=== PATIENT | male | born 1945 | race Caucasian/White ===

== ENCOUNTER 2022-06-25 15:08 | Outpatient (CLI) | payer MEDICARE, BC, SELFPAY ==
--- NOTE | 2022-06-25 15:30 | MR_ITS ---
[address] [address] Phone:?[phone] Fax:?[phone] Referring Physician Information: Mike Wheatley M.D. [address] [place] [address] Phone:?[phone] Fax:?[phone] Patient:?Leonel Kinney D.O.B:?1945 Sex:?Male Phone:?[phone] [facility] MRN:?[id number] Exam Date:?06/25/2022 ? EXAM: MRI EXAMINATION OF THE LEFT SHOULDER CLINICAL INFORMATION: Left shoulder pain. No history of surgery to this area. Evaluate rotator cuff tear. TECHNICAL INFORMATION: Coronal STIR as well as axial, sagittal and coronal PD and T2-weighted images acquired. INTERPRETATION: Bones: There is no Hill-Sachs impaction deformity. Subchondral edema signal involves the superior one third of the glenoid without evidence for a fracture. No evidence for AVN. No other bone marrow edema pattern. Rotator Cuff: There is a complete rupture of the supraspinatus tendon insertion. There is also a broad full-thickness tear involving the infraspinatus tendon. Maximal tendon retraction is midway between the glenohumeral joint and mid humeral head level. Severe infraspinatus and moderate to severe supraspinatus muscle belly atrophy. The teres minor tendon is intact. Broad full-thickness and near full-thickness tear involves the subscapularis tendon. Segmental marked atrophy involves the superior third two thirds of the subscapularis muscle belly. Coracoacromial arch: There is no discrete subacromial osseous spur. The bony acromiohumeral interval is measuring 3 to 4 mm. There is no thickening identified of the coracoacromial ligament. Acromioclavicular joint: Moderate to marked AC joint DJD. Biceps tendon: Disrupted intra-articular portion of the long head biceps tendon appearing likely to be a more chronic finding. Glenohumeral joint and labrum: There is a moderate glenohumeral joint effusion. Changes of synovitis and possibly component of loose body debris within the joint. Glenohumeral joint osteoarthritis with broad full-thickness cartilage loss involving the humeral head. Chondromalacia with areas of associated full- thickness cartilage loss of the mid anterosuperior aspect of the glenoid. There is a blunted appearance of the superior labrum. Shallow tearing involves the superior posterior aspect of the labrum. No discrete paralabral cyst is identified. CONCLUSION: 1. Complete supraspinatus tendon rupture. Broad full-thickness tear of the infraspinatus tendon. Maximal tendon retraction is midway between the glenohumeral joint and mid humeral head level. Severe infraspinatus and moderate to severe supraspinatus muscle belly atrophy. 2. Broad full-thickness and near full-thickness tearing involves the subscapularis tendon. Segmental marked atrophy of the superior two thirds of the muscle belly. 3. Moderate to marked AC joint DJD with moderate to marked narrowing of the acromiohumeral interval. 4. More chronic appearing intra-articular long head biceps tendon disruption. 5. Glenohumeral joint osteoarthritis. Broad full-thickness cartilage loss of the humeral head. Chondromalacia with areas of full-thickness loss of the mid anterosuperior glenoid. 6. There is a moderate glenohumeral joint effusion. Synovitis and possible component of loose body debris within the joint. KES Electronically signed on 06/26/2022 7:26:00 AM by Ulises Quiroga M.D.
== END 2022-06-25 15:09 | disposition home or self-care (01) ==
PROVIDERS: Visit Provider Orthopaedic Surgery
DX: M25.512 Pain in left shoulder (principal); M75.102 Unspecified rotator cuff tear or rupture of left shoulder, not specified as traumatic; M19.012 Primary osteoarthritis, left shoulder; M25.412 Effusion, left shoulder
CPT/HCPCS: 73221

== ENCOUNTER 2022-09-25 10:20 | Inpatient (IN) | payer MEDICARE, BC, SELFPAY ==
--- NOTE | 2022-09-17 15:04 | PC.SOCIAL ---
Received a phone call from Ca in pre-op teaching. Ca informed that pt has a public [facility] nurse through [facility] (Sherry Janet [phone]) and pt is need SNF placement after surgery. Ca stated that pt informed her that the [facility] nurse was locating a SNF placement for pt for after surgery with [facility] in [place]. Surgery is set for September 24. Phone call to Sherry Gonzales with [facility]. Sherry informed that she is not assisting with locating placement and assumed the hospital would be. Informed that it was the information that was relayed to social work and social work will work with the pt to meet the pt's needs. Phone call to pt to discuss SNF placement. Pt stated that he thought he could possibly go to [facility] because he has a granddaughter that works there. Pt has also been in contact with a nurse from [facility] (Georgia Hammonds) and he was hopeful that he could go to [facility]. Informed pt that beds have been limited at SNF's but when he is in the hospital, social work will assist with appropriate discharge planning. Social Work will follow up as necessary.
--- NOTE | 2022-09-18 15:23 | PC.SOCIAL ---
Social work: Received request from [facility] to call pt regarding his request for fdc placement following scheduled left Reverse Shoulder Arthroplasty on 09/24/22. Called pt and spoke with him regarding his plans. PT states his daughter works at [facility] and he wants to go to that facility for rehab following his surgery. Pt states his grand daughter told him the hospital social workers could make a reservation for him before surgery. Explained to pt that it is not possible to make a reservation or to make any progress on placement prior to surgery. Also informed pt that not all surgery meets criteria for insurance coverage of a fdc facility. Pt was pleasant but not interested in discussing any other back up options for arranging for care at home or to stay with family an states he needs to go to a senior living and he has called his insurance and been told it will be covered. Pt is aware social services counselor will meet with him in the hospital to explore options and need for placement at that time.
[2022-09-24] VITALS (25 sets, daily range): BP systolic 97–145; BP diastolic 53–93; PULSE 53–84; RESP 14–20; TEMP 35.2–36.7; O2SAT 93–99; BMI 23.1
[2022-09-24] MEDS: ACETAMINOPHEN 500 MG TABLET 1000 MG PO ×2 (07:20→18:52)
[2022-09-24] MEDS: CELECOXIB 200 MG CAPSULE PO (07:20)
[2022-09-24] MEDS: OXYCODONE (CR) 10 MG TAB.ER.12H PO (07:20)
[2022-09-24] MEDS: SODIUM CHLORIDE 0.9 % (FLUSH) 10 ML SYRINGE IVF (07:25)
[2022-09-24] MEDS: LACTATED RINGERS 1000 ML 1,000 ML 100 ML IV ×2 (07:25→11:18)
[2022-09-24] MEDS: fentaNYL 100 MCG/2 ML inj IVP (08:02)
[2022-09-24] MEDS: MIDAZOLAM HCL 1 MG/ML inj IVP (08:02)
--- NOTE | 2022-09-24 08:14 | SUR.PREOP ---
TIME?OUT:?0800 PT/Dana JASSO RN/Marleny DUVALL MDA?VERIFICATION?OF?SURGICAL?SITE,?PROCEDURE,?AND?CONSENT OBTAINED?PRIOR?TO?INVASIVE?PROCEDURE.
--- NOTE | 2022-09-24 08:15 | W.ANESCHARGE ---
Anesthesia Charges Start Date/Time Anesthesia Start Date: 09/24/22 Anesthesia Start Time: 08:32 Stop Date/Time Anesthesia Stop Date: 09/24/22 Anesthesia Stop Time: 10:57 Summary Emergency: No Extremes of Age: Over 71-CPT [address]4723
--- NOTE | 2022-09-24 08:16 | P.NB_ITS ---
Nerve Block Nerve Block Time Seen by Provider: 08:01 Date Seen: 09/24/22 Type of block requested by surgeon for post-operative analgesia: supraclavicular Side: left Time out performed: Yes Verification of patient name: Yes Verification of date of : Yes Site marking: site marked Name of person performing procedure: Efraín Continuous monitoring Was continuous monitoring of O2 sat, B/P, cardiac nurse specialist, recorded every 15 minutes?: Yes Procedure Checklist: sterile prep, needles and gloves Ultrasound guided. Images saved: Yes Medications given in 5ml increments after negative aspiration: Ropivicaine %: 0.5 mL: 20 Needle gauge: 22 Decadron (mg): 10 Precedex (mcg): 25 Patient tolerated procedure well: Yes Block Charges Block Charge (with Pro Fee): Brachial Plexus Use of Ultrasound Machine for Block: Yes- US Guidance/pain block
--- NOTE | 2022-09-24 10:01 | W.ANESCHARGE ---
Anesthesia Charges Start Date/Time Anesthesia Start Date: 09/24/22 Anesthesia Start Time: 08:32 Stop Date/Time Anesthesia Stop Date: 09/24/22 Summary Emergency: No Extremes of Age: Over 71-CPT [address]78
--- NOTE | 2022-09-24 10:22 | CRLHL7_ITS ---
For Patients: As a result of the Cures Act, medical imaging exams and procedure reports are released immediately into your electronic medical record. You may view this report before your referring provider. If you have questions, please contact your health care provider. Indication: POST OP LEFT REVERSE TOTAL SHOULDER Technique: Two views left shoulder Findings/Impression: Hardware from a left reverse total shoulder arthroplasty is in satisfactory position. Bone alignment is normal. No sign of acute fracture. Postop changes are within normal limits. Dictated by Anjum Corona MD @ 09/24/2022 11:28:17 AM (Electronically Signed)
--- NOTE | 2022-09-24 10:25 | P.ORPRC_ITS ---
Procedure Note Date of procedure: 09/24/22 Procedure: PREOPERATIVE DIAGNOSIS: Left shoulder rotator cuff tear arthropathy POSTOPERATIVE DIAGNOSIS: Left shoulder rotator cuff tear arthropathy NAME OF OPERATION: Left upper extremity reverse shoulder arthroplasty SURGEON: Mike Wheatley MD [employer] MANAGER: Barbara Morales PA-C, ANIKET Ruiz ANESTHESIA: General endotracheal ESTIMATED BLOOD LOSS: 50 mL COMPLICATIONS: None SPECIMENS: None DRAINS: None PREOPERATIVE ANTIBIOTICS: Ancef 1 grams IMPLANTS: 1. Tornier 29 mm x 35 mm baseplate 2. 39 mm standard glenosphere 3. 6B humeral stem 4. High eccentric +0 humeral tray 5. 39 mm +6 polyethylene INDICATIONS: The patient is a 77-year-old with a longstanding history of severe, unrelenting left shoulder pain secondary to rotator cuff tear arthropathy. Despite appropriate nonoperative management, including activity modification, anti-inflammatories, [id number] pain medication, physical therapy, and injections they continue to have pain and disability. Operative intervention was offered. The risks, benefits and expected outcomes were discussed in detail. These included but were not limited to: Infection, bleeding, injury to blood vessel or nerve, venous thromboembolism. All questions were answered to their satisfaction. Use of an property management assistant was necessary throughout the case for patient positioning and safety, soft tissue retraction, and closure. PROCEDURE: General anesthesia was administered. The patient was placed in the lazy beach chair position on the operating room table. The left upper extremity was prepped and draped in the usual sterile fashion. A standard deltopectoral incision was made. Subcutaneous dissection was taken with electrocautery to the deltopectoral interval. The cephalic vein was mobilized, lateral branches were cauterized. The vein was taken medially with the pectoralis. We bluntly entered the deltopectoral interval. We freed up the deltoid. The upper 1/3 of the insertion of the pectoralis was divided with cautery. The static retractor was placed. The clavipectoral fascia and CA ligament were divided. The circumflex vessels were controlled with electrocautery. The biceps was torn and retracted distally. Likewise, the majority of the subscap was torn and retracted medially. The remaining few fibers on the lesser tuberosity were released with electrocautery. The entirety of the rest of the rotator cuff, with the exception of a small portion of teres minor was torn and retracted. The humeral head was delivered into the wound. Marginal osteophytes on the greater and lesser tuberosities were debrided with the Adson rongeur. The intramedullary humeral cutting guide was placed. We made the cut at the anatomic neck, in 30? of retroversion. Humeral sounds were used to assess the diameter of the canal. The broach was placed and had good rotational stability. The calcar reamer was used and the protective base plate cover was placed. Attention was then turned to the glenoid. Hohmann retractors were placed posteriorly. The labrum was sharply debrided. The origin of the inferior glenohumeral ligaments were subperiosteally released off of the glenoid. The drill guide was placed. The guide pin was placed in 0? of cephalic tilt. The reamer was used to bleeding bone. The central drill was used x2. The standard base plate was placed. This had excellent purchase. Locking screws were placed. The peripheral Reamer was used, the glenosphere was impacted. The set screw was tightened. Attention then returned to the humerus. We placed a high eccentric standard base plate and standard poly. We reduced the shoulder and took it through a range of motion. It was found to be stable with appropriate soft tissue tension. Trial humeral components were removed. We placed #2 FiberWire sutures in the lesser tuberosity for subsequent subscap repair. We assembled the humeral component on the back table. We placed it in the center of our subscapularis repair sutures and tapped it down to our humeral cut. This had excellent purchase. The shoulder was reduced and again was found to be stable with appropriate soft tissue tension. We did a 3 min dilute Betadine solution soak. We irrigated the wound with 3 L of normal saline via pulse lavage. We repaired the subscapularis to the lesser tuberosity with our previously placed FiberWire sutures. The deltopectoral interval was loosely reapproximated with an 0 Vicryl in an interrupted [id number] fashion. Subcutaneous tissues were closed with the 2-0 Vicryl and a running 3-0 Monocryl suture. The skin was sealed with glue. A dry dressing and sling were applied. Sponge and needle counts were correct x2. The patient tolerated the procedure well, there were no apparent complications. They were awakened and extubated in the operating room, taken to the postanesthesia care unit in satisfactory condition. PLAN: The patient will be mobilized with physical therapy. The sling will be used for 6 weeks postoperatively. Active range of motion in forward flexion and abduction as tolerates. No external rotation greater than 0? for 6 weeks postoperatively. They will be discharged to home once medically appropriate.
--- NOTE | 2022-09-24 11:00 | W.ANESCHARGE ---
Anesthesia Charges Start Date/Time Anesthesia Start Date: 09/24/22 Anesthesia Start Time: 08:32 Stop Date/Time Anesthesia Stop Date: 09/24/22 Anesthesia Stop Time: 10:57 Summary Emergency: No Extremes of Age: Over 71-CPT 41931
--- NOTE | 2022-09-24 14:52 | PM.IMPN1 ---
Progress Note: A&P Assessment and plan (1) Rotator cuff tear, left: Status: Chronic (2) Multiple sclerosis: Status: Acute Plan Assessment 1. S/p Left upper extremity reverse shoulder arthroplasty 1. Hx of MS 2. Hx of HTn 3. Hx of frequent falls 4. Hx of Essential Tremor 5. Hx of Trigeminal Neuralgia 6. Hx of Alcoholism 7. Hx of Urinary Incontinence 8. Hx of CVA 9. Hx of Ataxia 10. hx of Atrial fibrillation on warfarin Plan -pain control; diet, dvt ppx per surgery -Preop H&P reviewed; will resume warfarin per PCP recs -discussed with Ortho will bridge with lovenox 60 mg subq BID; previously was bridged with lovenox 120 mg subq daily prior to surgery -high risk for DVT (hx of CVA, Afib, clotting d/o etc) -monitor for s/s of bleeding into LUE/shoulder -check INR -home medications reviewed; ordered -BMP and CBC baseline in AM -therapy evaluation and SW Time Spent With Patient Total time spent: 55 Subjective Date Seen: 09/24/22 Interval history: patient complaining of hand tremors after surgery has not had home meds yet has to go to bathroom denies chest pain and sob PREOPERATIVE DIAGNOSIS:? Left shoulder rotator cuff tear arthropathy NAME OF OPERATION:? Left upper extremity reverse shoulder arthroplasty SURGEON:? Mike Wheatley MD ANESTHESIA:? General endotracheal ESTIMATED BLOOD LOSS:? 50 mL Exam Narrative: Exam Narrative: Gen: no acute distress HEENT: NCAT EOMI mmm Neck: Supple CV: bradycardic normal s1 s2 Lungs: CTAB Abd: Soft,nt, nd Neuro: Alert, oriented, bilateral hand tremors Psych: appropriate affect MSK: age appropriate muscle mass Skin; Warm, dry no rash on face Const: Vital Signs, click to edit/add: Vital Signs - 24 hr 09/24/22 07:35 09/24/22 08:00 09/24/22 08:10 Temperature 97.8 F Pulse Rate 57 L 53 L 55 L Pulse Rate [Pulse Oximeter] Respiratory Rate 18 18 16 Blood Pressure 140/78 H 142/76 H 97/56 L Blood Pressure [Ri ght Arm] Pulse Oximetry 96 99 99 Oxygen Delivery Me thod Room Air Nasal Cannula Nasal Cannula Oxygen Flow Rate 2 2 09/24/22 10:55 09/24/22 11:05 09/24/22 11:20 Temperature 97.2 F L Pulse Rate 58 L 61 58 L Pulse Rate [Pulse Oximeter] Respiratory Rate 16 16 20 Blood Pressure 119/71 116/80 100/87 Blood Pressure [Ri ght Arm] Pulse Oximetry 96 96 95 Oxygen Delivery Me thod Room Air Room Air Room Air Oxygen Flow Rate 0 0 0 09/24/22 11:25 09/24/22 11:30 09/24/22 11:00 Temperature 96.7 F L Pulse Rate 62 54 L 59 L Pulse Rate [Pulse Oximeter] Respiratory Rate 20 20 16 Blood Pressure 145/77 H 119/75 102/76 Blood Pressure [Ri ght Arm] Pulse Oximetry 94 95 94 Oxygen Delivery Me thod Room Air Room Air Room Air Oxygen Flow Rate 0 0 0 09/24/22 11:10 09/24/22 11:15 09/24/22 11:40 Temperature 95.4 F L Pulse Rate 65 60 60 Pulse Rate [Pulse Oximeter] Respiratory Rate 20 20 14 Blood Pressure 116/80 114/84 Blood Pressure [Ri ght Arm] 109/65 Pulse Oximetry 95 94 Oxygen Delivery Me thod Room Air Room Air Room Air Oxygen Flow Rate 0 0 09/24/22 11:55 09/24/22 12:00 09/24/22 13:38 Temperature 96.7 F L Pulse Rate Pulse Rate [Pulse Oximeter] 58 L 60 62 Respiratory Rate 14 14 Blood Pressure Blood Pressure [Ri ght Arm] 106/75 116/72 116/73 Pulse Oximetry 95 96 Oxygen Delivery Me thod Room Air Room Air Room Air Oxygen Flow Rate 0 09/24/22 12:30 09/24/22 13:00 09/24/22 13:30 Temperature 97.1 F L 97.2 F L Pulse Rate Pulse Rate [Pulse Oximeter] 61 74 74 Respiratory Rate 16 16 Blood Pressure Blood Pressure [Ri ght Arm] 119/71 112/86 144/72 H Pulse Oximetry 97 94 Oxygen Delivery Me thod Room Air Room Air Room Air Oxygen Flow Rate 0 0 0 09/24/22 14:30 Temperature 97.4 F L Pulse Rate Pulse Rate [Pulse Oximeter] 82 Respiratory Rate 16 Blood Pressure Blood Pressure [Ri ght Arm] 129/53 L Pulse Oximetry 96 Oxygen Delivery Me thod Room Air Oxygen Flow Rate 0
--- NOTE | 2022-09-24 15:18 | PC.SOCIAL ---
Pt. lives alone with MS and wants a prison for rehab following his shoulder surgery. Pt.'s granddaughter works at [facility] and he called ahead. [facility] has bed and is assessing.
[2022-09-24] MEDS: BACLOFEN 10 MG TABLET 20 MG PO ×2 (16:10→21:17)
[2022-09-24] MEDS: GABAPENTIN 100 MG CAPSULE 300 MG PO (17:08)
[2022-09-24 17:35] LABS: INR 0.99 (0.91-1.10); Prothrombin Time 13.7 Seconds
[2022-09-24] MEDS: ENOXAPARIN 60 MG/0.6 ML INJ SUBCUT (18:09)
[2022-09-24] MEDS: WARFARIN 5 MG TABLET PO (18:09)
[2022-09-24] MEDS: LACTATED RINGERS 1000 ML 1,000 ML 75 ML IV (21:09)
[2022-09-24] MEDS: GABAPENTIN 100 MG CAPSULE 400 MG PO (21:16)
[2022-09-24] MEDS: TAMSULOSIN HCL 0.4 MG CAPSULE 0.8 MG PO (21:17)
--- NOTE | 2022-09-24 23:38 | PC.NURSE ---
End of Shift: Patient pleasant and cooperative. Afebrile. Denies pain. Dressing to left shoulder C/D/I. CMS intact and able to move fingers slightly by the end of the shift. Up to the bathroom and chair with 2 assist and gait belt. Tolerating regular diet with no nausea. Needing total assistance with feeding. Scab to right aguilar that patient reported he noticed last night.
[2022-09-25] VITALS (7 sets, daily range): BP systolic 110–148; BP diastolic 59–87; PULSE 66–96; RESP 16–20; TEMP 36.5–36.7; O2SAT 94–96
[2022-09-25] MEDS: ACETAMINOPHEN 500 MG TABLET 1000 MG PO ×4 (03:12→19:35)
[2022-09-25] MEDS: GABAPENTIN 100 MG CAPSULE PO (03:18)
[2022-09-25] MEDS: ENOXAPARIN 60 MG/0.6 ML INJ SUBCUT ×2 (05:43→17:01)
--- NOTE | 2022-09-25 06:14 | PC.NURSE ---
Pt is alert and oriented x3, pleasant and cooperative. Afebrile. Pt denies pain, chest pain, SOB, and N/V. Left shoulder dressing is CDI. CMS intact and able to move fingers and shoulder. Pt is up with A1 with gait belt to bathroom. Gait is unstable and pt requires direction. Tolerates regular diet, requires assistance with medication administration and food due to hand tremors in non-surgical arm.?
[2022-09-25 07:27] LABS: Hematocrit 31.7 % (37.0-53.0); Hemoglobin* 10.6 gm/dL (13.5-17.5); Mean Corpuscular HGB Conc 33 gm/dL (32-36); Mean Corpuscular Hemoglobin 31 pg (26-34); Mean Corpuscular Volume 93 fL (80-100); Platelet Count* 158 K/uL (140-440); Red Blood Count 3.41 m/uL (4.30-5.90); White Blood Count* 8.19 K/uL (4.50-11.00)
[2022-09-25 07:35] LABS: Slide Review Reflex No
[2022-09-25 07:43] LABS: INR 1.17 (0.91-1.10); Prothrombin Time 15.6 Seconds
[2022-09-25 07:46] LABS: Chloride* 110 mmol/L (96-114); Potassium* 4.7 mmol/L (3.6-5.1); Sodium* 139 mmol/L (135-149)
[2022-09-25 07:48] LABS: Creatinine* 0.9 mg/dL (0.5-1.5); Est. Creatinine Clearance* 64.89; Estimated Glomerular Filt Rate 89 ml/min
[2022-09-25 07:49] LABS: Blood Urea Nitrogen* 30 mg/dL (7-30); Calcium* 8.4 mg/dL (8.4-10.6); Carbon Dioxide* 25 mmol/L (20-32); Glucose* 125 mg/dL (60-115)
--- NOTE | 2022-09-25 07:52 | PM.ORPN ---
Subjective Subjective Time Seen by Provider: 07:52 Date Seen: 09/25/22 Principal diagnosis: Status post left reverse shoulder replacement. Date of surgery 09/24/2022 Interval history: Leonel states that he has gotten movement in his left hand and wrist. He states going to the bathroom this morning went well. His nurse Abelardo states it did not go well. Ortho Exam Narrative Exam Narrative: Alert and oriented x3. Patient is in no acute distress. Converses without labored breathing. Hearing is grossly intact. Ambulates with assist and a walker. Left arm is in a sling. Left wrist flexion and extension is present. He is able to flex and extend his fingers. Radial and ulnar pulses are 2+. Sensation is slightly returning. Ecchymosis present about the shoulder. Soft tissue edema about the shoulder. The sling is adjusted. Const Vital Signs, click to edit/add: Vital Signs - 24 hr 09/24/22 08:00 09/24/22 08:10 09/24/22 10:55 Temperature 97.2 F L Pulse Rate 53 L 55 L 58 L Pulse Rate [Left Radial] Pulse Rate [Pulse Oximeter] Respiratory Rate 18 16 16 Blood Pressure 142/76 H 97/56 L 119/71 Blood Pressure [Right Arm] Pulse Oximetry 99 99 96 Oxygen Delivery Method Nasal Cannula Nasal Cannula Room Air Oxygen Flow Rate 2 2 0 09/24/22 11:05 09/24/22 11:20 09/24/22 11:25 Temperature 96.7 F L Pulse Rate 61 58 L 62 Pulse Rate [Left Radial] Pulse Rate [Pulse Oximeter] Respiratory Rate 16 20 20 Blood Pressure 116/80 100/87 145/77 H Blood Pressure [Right Arm] Pulse Oximetry 96 95 94 Oxygen Delivery Method Room Air Room Air Room Air Oxygen Flow Rate 0 0 0 09/24/22 11:30 09/24/22 11:00 09/24/22 11:10 Temperature Pulse Rate 54 L 59 L 65 Pulse Rate [Left Radial] Pulse Rate [Pulse Oximeter] Respiratory Rate 20 16 20 Blood Pressure 119/75 102/76 116/80 Blood Pressure [Right Arm] Pulse Oximetry 95 94 95 Oxygen Delivery Method Room Air Room Air Room Air Oxygen Flow Rate 0 0 0 09/24/22 11:15 09/24/22 11:40 09/24/22 11:55 Temperature 95.4 F L Pulse Rate 60 60 Pulse Rate [Left Radial] Pulse Rate [Pulse Oximeter] 58 L Respiratory Rate 20 14 14 Blood Pressure 114/84 Blood Pressure [Right Arm] 109/65 106/75 Pulse Oximetry 94 95 Oxygen Delivery Method Room Air Room Air Room Air Oxygen Flow Rate 0 09/24/22 12:00 09/24/22 13:38 09/24/22 12:30 Temperature 96.7 F L Pulse Rate Pulse Rate [Left Radial] Pulse Rate [Pulse Oximeter] 60 62 61 Respiratory Rate 14 Blood Pressure Blood Pressure [Right Arm] 116/72 116/73 119/71 Pulse Oximetry 96 Oxygen Delivery Method Room Air Room Air Room Air Oxygen Flow Rate 0 0 09/24/22 13:00 09/24/22 13:30 09/24/22 14:30 Temperature 97.1 F L 97.2 F L 97.4 F L Pulse Rate Pulse Rate [Left Radial] Pulse Rate [Pulse Oximeter] 74 74 82 Respiratory Rate 16 16 16 Blood Pressure Blood Pressure [Right Arm] 112/86 144/72 H 129/53 L Pulse Oximetry 97 94 96 Oxygen Delivery Method Room Air Room Air Room Air Oxygen Flow Rate 0 0 0 09/24/22 15:00 09/24/22 19:00 09/24/22 15:30 Temperature 97.6 F 97.4 F L Pulse Rate Pulse Rate [Left Radial] 82 76 Pulse Rate [Pulse Oximeter] 76 Respiratory Rate 18 18 Blood Pressure Blood Pressure [Right Arm] 136/90 H 135/71 Pulse Oximetry 93 94 Oxygen Delivery Method Room Air Room Air Oxygen Flow Rate 0 09/24/22 16:30 09/24/22 17:30 09/24/22 23:00 Temperature 97.6 F Pulse Rate Pulse Rate [Left Radial] Pulse Rate [Pulse Oximeter] 78 84 83 Respiratory Rate 18 18 Blood Pressure Blood Pressure [Right Arm] 134/81 140/93 H Pulse Oximetry 95 94 Oxygen Delivery Method Room Air Room Air Oxygen Flow Rate 0 0 09/24/22 23:00 09/25/22 03:00 Temperature 98.0 F 97.9 F Pulse Rate Pulse Rate [Left Radial] 83 Pulse Rate [Pulse Oximeter] 83 80 Respiratory Rate 16 16 Blood Pressure Blood Pressure [Right Arm] 138/78 148/87 H Pulse Oximetry 95 95 Oxygen Delivery Method Room Air Room Air Oxygen Flow Rate 0 0 Assessment and Plan Assessment and plan (1) Multiple sclerosis: Status: Acute (2) Status post reverse arthroplasty of left shoulder: Problem details: 09/24/2022 Status: Acute Assessment and Plan: Events [employer] Prom[employer] Assistant is assessing placement at [facility]. His granddaughter works at [facility] and he would like to go there. He would benefit from prison facility since he lives alone. According to staff, Leonel is not moving well. He has MS. He is on long-term warfarin for anticoagulation. Lovenox 60 mg subQ b.i.d. has been added as well for he is at high risk of DVT. The block will wear off in the next 24 hours. I would expect he will have excessive bruising. Forward flexion and abduction of the operative shoulder as tolerates, no external rotation > 0?. Come out of the sling multiple times a day to fully range the elbow, wrist and fingers. Wear sling for 6 weeks. May shower. Dressing is waterproof. Notify Orthopedics with any questions or concerns. . Return to clinic in 1 week for wound check, JACKI. Return to clinic in [address] Wheatley. OT and PT at prison facility daily
[2022-09-25] MEDS: SENNOSIDES 1 TAB TABLET 2 TAB PO ×2 (09:31→20:52)
[2022-09-25] MEDS: TAMSULOSIN HCL 0.4 MG CAPSULE 0.8 MG PO ×2 (09:31→20:53)
[2022-09-25] MEDS: BACLOFEN 10 MG TABLET 20 MG PO ×3 (09:31→20:55)
[2022-09-25] MEDS: GABAPENTIN 100 MG CAPSULE 400 MG PO ×2 (09:33→20:54)
[2022-09-25] MEDS: SERTRALINE 50 MG TABLET PO (09:35)
[2022-09-25] MEDS: GABAPENTIN 100 MG CAPSULE 300 MG PO (14:02)
--- NOTE | 2022-09-25 15:09 | PC.SOCIAL ---
Pt. has been accepted to [address] [place] [address] for short-term rehab for tomorrow. Pt. wants a medical transport. A non-emergency medical transport will be arranged. Pt. is in agreement to pay for the transport.
[2022-09-25] MEDS: DALFAMPRIDINE 10 MG PO ×2 (15:46→20:55)
[2022-09-25] MEDS: WARFARIN 5 MG TABLET PO (17:01)
--- NOTE | 2022-09-25 17:10 | P.IMPN_ITS ---
Progress Note: A&P Assessment and plan (1) Multiple sclerosis: Problem details: Continue with weekly injections of interferon Status: Acute (2) Status post reverse arthroplasty of left shoulder: Problem details: 09/24/2022, Dr. Wheatley Status: Acute Assessment and Plan: With patient's limited baseline physical functioning and now status post this left shoulder surgery he warrants senior living placement for period of time. Plan Continue work with social contact worker to establish safe discharge disposition. Patient and daughter and son-in-law are agreeable. Time Spent With Patient Total time spent: 15 minutes Subjective Time Seen by Provider: 16:00 Date Seen: 09/25/22 Interval history: Hospital day 2, postoperative day 1 status post elective left shoulder arthroplasty. Patient lives alone and is not able to safely care for himself in his home. Has disability in association with underlying multiple sclerosis. Awaiting senior living bed availability for transitional care services. Patient pleased with outcome of surgery thus far. Working with physical occupational therapy. Would be very appropriate for senior living services at this time. Exam Narrative: Exam Narrative: No acute distress, appears comfortable. Oriented to self, place, time, situation. Friendly, cooperative. Articulate. Mood and affect are congruent. Lungs clear to auscultation. Heart tones with regular rhythm. Baseline tremor of right side of the body. Const: Vital Signs, click to edit/add: Vital Signs - 24 hr 09/24/22 19:00 09/24/22 17:30 09/24/22 23:00 Temperature 97.6 F 97.6 F Pulse Rate [Left R adial] 76 Pulse Rate [Pulse Oximeter] 84 83 Respiratory Rate 18 18 Blood Pressure [Ri ght Arm] 136/90 H 140/93 H Pulse Oximetry 93 94 Oxygen Delivery Me thod Room Air Room Air Oxygen Flow Rate 0 09/24/22 23:00 09/25/22 03:00 09/25/22 07:45 Temperature 98.0 F 97.9 F 97.7 F Pulse Rate [Left R adial] 83 66 Pulse Rate [Pulse Oximeter] 83 80 66 Respiratory Rate 16 16 18 Blood Pressure [Ri ght Arm] 138/78 148/87 H 129/77 Pulse Oximetry 95 95 95 Oxygen Delivery Me thod Room Air Room Air Room Air Oxygen Flow Rate 0 0 0 09/25/22 07:45 09/25/22 11:00 09/25/22 16:30 Temperature 98.0 F Pulse Rate [Left R adial] 66 79 96 Pulse Rate [Pulse Oximeter] 66 79 96 Respiratory Rate 18 20 18 Blood Pressure [Ri ght Arm] 110/59 L Pulse Oximetry 94 Oxygen Delivery Me thod Room Air Oxygen Flow Rate 0 09/25/22 15:15 Temperature 98.1 F Pulse Rate [Left R adial] 96 Pulse Rate [Pulse Oximeter] 96 Respiratory Rate 18 Blood Pressure [Ri ght Arm] 110/84 Pulse Oximetry 96 Oxygen Delivery Me thod Room Air Oxygen Flow Rate 0 Documenting provider has reviewed patient's vital signs: yes Labs Labs: Laboratory Results - last 24 hr 09/24/22 09/25/22 09/25/22 17:13 06:55 06:55 WBC 8.19 RBC 3.41 L Hgb 10.6 L Hct 31.7 L MCV 93 MCH 31 MCHC 33 Plt Count 158 INR 0.99 Sodium 139 Potassium 4.7 Chloride 110 Carbon Dioxide 25 BUN 30 Creatinine 0.9 Estimated Creat Clear 64.89 Estimated GFR 89 Glucose 125 H Calcium 8.4 09/25/22 06:55 WBC RBC Hgb Hct MCV MCH MCHC Plt Count INR 1.17 H Sodium Potassium Chloride Carbon Dioxide BUN Creatinine Estimated Creat Clear Estimated GFR Glucose Calcium
--- NOTE | 2022-09-25 18:12 | PC.NURSE ---
End of Shift: Pt pleasant and cooperative. Afebrile. Denies pain. Dressing to left shoulder C/D/I. CMS intact and able to move fingers /arms.. Up to the bathroom and chair with 2 assist and gait belt. he is very unsteady and a huge fall risk Tolerating regular diet with no nausea. he is a feeder. Scab to right aguilar that patient dressing is on./ teds are on and off. Cryo cuff to the shoulder/ requires assistance with medication administration and food due to hand tremors in non-surgical arm
[2022-09-25] MEDS: LORazepam 0.5 MG TABLET PO (20:52)
[2022-09-25] MEDS: SODIUM CHLORIDE 0.9 % (FLUSH) 10 ML SYRINGE IVF (20:55)
[2022-09-25] MEDS: OXYCODONE 5 MG TABLET PO (22:20)
--- NOTE | 2022-09-25 22:38 | PC.NURSE ---
19-23: Pt's gait steady with his legs, but still flailing arms while walking, thus able to use gait belt and Ax1 to BR, as walker posed increased fall risk. Main concern is patient anxious about his gabapentin that he apparently forgot at home in a small luggage, anyways pt was highly anxious/restless setting bed alarm frequently, helped patient look through his belongings three times without success, informed him the belonging list and med room didn't contain his gabapentin, he refused need to call his daughter's about it as they wouldn't be able to get it and he probably wouldn't have it until Friday, after a few times questioning him he stated he would call his daughter in the morning and hopefully get it taken care of, as pt is fearful/anxious if he doesn't have gabapentin on hand he experiences extreme pain he was comparing to being hit with a 14 ice pick, educated him we can't have meds sitting at pt's bedside, but I will be working as charge and another nurse will take care of him tonight, and as he described if he needs it around 0000,03 we would be able to administer it in a few minutes, adjusted scheduled gabapentin to home times and md mclean was updated and prn gabapentin tid was ordered. Pt hesitatant at first to take narcotics and preffered gabapenting, but recently was willing to take 10mg oxycodone as he noted his shoulder becoming painful after surgery. Bed alarms on and after pt swallowed oxycodone he seems restful and took his glasses of in bed, pt also recieved ativan around 2100.
[2022-09-26] VITALS (8 sets, daily range): BP systolic 90–122; BP diastolic 53–81; PULSE 60–98; RESP 18; TEMP 36.1–37.3; O2SAT 91–98
[2022-09-26] MEDS: ACETAMINOPHEN 500 MG TABLET 1000 MG PO ×3 (03:30→19:04)
[2022-09-26] MEDS: OXYCODONE 5 MG TABLET PO ×3 (05:15→15:20)
[2022-09-26] MEDS: GABAPENTIN 100 MG CAPSULE 400 MG PO ×2 (05:15→19:42)
[2022-09-26] MEDS: ENOXAPARIN 60 MG/0.6 ML INJ SUBCUT ×2 (05:16→17:23)
--- NOTE | 2022-09-26 06:44 | PC.NURSE ---
: Ax1 with gb, unsteady gait. Bed alarm on, pt asks to have the alarm turned off, pt reminded that it is for safety. Upper extremities tremulous. Pt c/o shoulder pain 5/10, 5mg oxy given. Cryo cuff on.
[2022-09-26 07:42] LABS: Hematocrit 29.3 % (37.0-53.0); Hemoglobin* 9.7 gm/dL (13.5-17.5); Mean Corpuscular HGB Conc 33 gm/dL (32-36); Mean Corpuscular Hemoglobin 31 pg (26-34); Mean Corpuscular Volume 94 fL (80-100); Platelet Count* 137 K/uL (140-440); Red Blood Count 3.13 m/uL (4.30-5.90); White Blood Count* 6.02 K/uL (4.50-11.00)
[2022-09-26 07:48] LABS: Slide Review Reflex No
[2022-09-26 08:05] LABS: Potassium* 4.1 mmol/L (3.6-5.1); Sodium* 140 mmol/L (135-149)
[2022-09-26 08:08] LABS: Blood Urea Nitrogen* 35 mg/dL (7-30); Creatinine* 0.9 mg/dL (0.5-1.5); Est. Creatinine Clearance* 64.89; Estimated Glomerular Filt Rate 89 ml/min
--- NOTE | 2022-09-26 08:55 | PM.ORPN ---
Subjective Subjective Time Seen by Provider: 08:00 Date Seen: 09/26/22 Principal diagnosis: Status post left reverse shoulder replacement. Date of surgery 09/24/2022 Interval history: Gucci is comfortable this morning. He has an a sling and 2 six-inch Micheal bandages wrapped around his torso. Ice pack is in place. He is going to [facility] today. Ortho Exam Narrative Exam Narrative: Alert and oriented x3. Patient is in no acute distress. Converses without labored breathing. Hearing is grossly intact. Ambulates with assistance. Examination of the left shoulder shows extensive edema. Extensive ecchymosis. Range of motion of the elbow, wrist, fingers is normal. CMS intact left upper extremity. Const Vital Signs, click to edit/add: Vital Signs - 24 hr 09/25/22 11:00 09/25/22 16:30 09/25/22 15:15 Temperature 98.0 F 98.1 F Pulse Rate [Left Radial] 79 96 96 Pulse Rate [Pulse Oximeter] 79 96 96 Respiratory Rate 20 18 18 Blood Pressure [Right Arm] 110/59 L 110/84 Pulse Oximetry 94 96 Oxygen Delivery Method Room Air Room Air Oxygen Flow Rate 0 0 09/25/22 19:39 09/25/22 23:00 09/25/22 23:00 Temperature 97.9 F 97.9 F Pulse Rate [Left Radial] 96 Pulse Rate [Pulse Oximeter] 75 75 Respiratory Rate 18 18 18 Blood Pressure [Right Arm] 127/66 133/76 Pulse Oximetry 96 96 Oxygen Delivery Method Room Air Room Air Oxygen Flow Rate 09/26/22 03:00 Temperature 96.9 F L Pulse Rate [Left Radial] Pulse Rate [Pulse Oximeter] 88 Respiratory Rate 18 Blood Pressure [Right Arm] 102/74 Pulse Oximetry 97 Oxygen Delivery Method Room Air Oxygen Flow Rate Documenting provider has reviewed patient's vital signs: yes Assessment and Plan Assessment and plan (1) Multiple sclerosis: Problem details: Continue with weekly injections of interferon Status: Acute (2) Status post reverse arthroplasty of left shoulder: Problem details: 09/24/2022, Dr. Wheatley Status: Acute Assessment and Plan: Plan for discharge is to [facility] today. Patient will wear the sling for 6 weeks post surgery. They can take it off for comfort and for exercises. Activity: no external rotation of the operative shoulder past 0? x 6 weeks. Forward flexion and abduction of the shoulder is allowed as tolerated. They will work on range of motion of the elbow, wrist, fingers once the block has wore off on the operative extremity. Physical therapy and occupational therapy at [facility] daily. For discharge, oxycodone and Tylenol for pain. Do not drive while on narcotic pain medication. Drive only when safe to do so, when they have normal use/function of the upper extremity, this will likely take 6 weeks. Patient will minimize and discontinue the narcotic as soon as possible. Remove dressing in 1 week. Dressing is waterproof. May shower. Surgical glue covers the wound. Do not scrub the wound. Expect swelling and bruising about the shoulder and upper extremity. Use of ice/active ice without restriction. Notify Orthopedics his swelling is excessive. notify Orthopedics with any questions or concerns. [phone] Return to Orthopedic clinic next week for a wound check Return to clinic in [address] Wheatley.
[2022-09-26] MEDS: BACLOFEN 10 MG TABLET 20 MG PO ×3 (09:23→19:42)
[2022-09-26] MEDS: DALFAMPRIDINE 10 MG PO ×2 (09:23→19:45)
[2022-09-26] MEDS: TAMSULOSIN HCL 0.4 MG CAPSULE 0.8 MG PO ×2 (09:24→19:42)
[2022-09-26] MEDS: SERTRALINE 50 MG TABLET PO (09:24)
[2022-09-26] MEDS: SENNOSIDES 1 TAB TABLET 2 TAB PO ×2 (09:24→19:43)
[2022-09-26] MEDS: GABAPENTIN 100 MG CAPSULE 300 MG PO (11:51)
--- NOTE | 2022-09-26 14:28 | PC.SOCIAL ---
Updated pt.'s daughter Rossy that pt. will not be discharged until tomorrow morning now due to the weather and EMS being booked. [facility] said they could take pt. as early as 8:15am tomorrow.
--- NOTE | 2022-09-26 15:34 | PM.DS1 ---
DS: Providers Provider Time Seen by Provider: 08:30 Date Seen: 09/26/22 Date of admission: 09/25/22 10:20 Primary care physician: Not a Local Provider Admitting Clinician: Lorena Whitlock MD Consults: 09/24/22 11:38 Consult to Occupational Therapy [CONS] Routine Comment: Reason(s) for OT Consult:: Evaluate and Treat Any Restrictions?:: See Comment Consult to Physical Therapy [CONS] Routine Comment: Reason(s) for PT Consult:: Evaluate and Treat Any Restrictions?:: See Comment Comment: Active forward flexion and abduction as tolerates, no external rotation greater than 0? x 6 weeks. DC sling 3-4 times per day and p.r.n. for for active range of motion of the elbow, wrist and fingers. Consult to Physician [CONS] Routine Comment: Consulting Provider: Hospitalists Has provider been notified: No Consult to Rotary Derrick Operator [CONS] Routine Comment: Reason for Consult:: Discharge Planning Needs Attending Physician on discharge: Mike Wheatley MD Date of Discharge: 09/26/22 DS: Diagnosis Discharge Diagnosis (1) Rotator cuff tear arthropathy of left shoulder: Status: Acute (2) Status post reverse arthroplasty of left shoulder: Status: Acute Problem details: 09/24/2022, Dr. 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 He undergoes elective left shoulder arthroplasty and is not able to return home independently and thus he is admitted to the hospital such time as we can find a place for him. We were able to find him a place in a relatively short period of time at [address] [place] [address]. Status at Discharge Functional status at discharge: uses cane/walker Overall status at discharge: patient is progressing back to baseline Time Spent with Patient Time attestation: Total time spent providing and/or coordinating discharge services: 30 minutes Time spent: Less than 30 minutes Exam Narrative: Exam Narrative: No acute distress, appears comfortable.? Oriented to self, place, time, situation.? Friendly, cooperative.? Articulate.? Mood and affect are congruent.? Lungs clear to auscultation.? Heart tones with regular rhythm.? Baseline tremor of right side of the body. Const: Vital Signs, click to edit/add: Vital Signs - 24 hr 09/25/22 16:30 09/25/22 19:39 09/25/22 23:00 Temperature 97.9 F Pulse Rate Pulse Rate [Left R adial] 96 96 Pulse Rate [Pulse Oximeter] 96 75 Respiratory Rate 18 18 18 Blood Pressure Blood Pressure [Ri ght Arm] 127/66 Pulse Oximetry 96 Oxygen Delivery Me thod Room Air Oxygen Flow Rate 09/25/22 23:00 09/26/22 03:00 09/26/22 07:00 Temperature 97.9 F 96.9 F L Pulse Rate Pulse Rate [Left R adial] Pulse Rate [Pulse Oximeter] 75 88 87 Respiratory Rate 18 18 Blood Pressure Blood Pressure [Ri ght Arm] 133/76 102/74 Pulse Oximetry 96 97 Oxygen Delivery Me thod Room Air Room Air Oxygen Flow Rate 09/26/22 07:00 09/26/22 11:30 09/26/22 11:00 Temperature 97.6 F 97.6 F 97.6 F Pulse Rate 60 Pulse Rate [Left R adial] Pulse Rate [Pulse Oximeter] 87 98 Respiratory Rate 18 18 18 Blood Pressure 119/75 Blood Pressure [Ri ght Arm] 122/81 90/60 Pulse Oximetry 98 91 Oxygen Delivery Me thod Room Air Room Air Oxygen Flow Rate 0 0 Documenting provider has reviewed patient's vital signs: yes DS: Data Data Completed and Pending Labs on day of discharge: Labs from last 24 hours 09/26/22 09/26/22 07:10 07:10 WBC 6.02 RBC 3.13 L Hgb 9.7 L Hct 29.3 L MCV 94 MCH 31 MCHC 33 Plt Count 137 L Sodium 140 Potassium 4.1 BUN 35 H Creatinine 0.9 Estimated Creat Clear 64.89 Estimated GFR 89 Discharge Plan Discharge Disposition: [facility] Discharge Location: [facility] Date of Admission: 09/25/22 10:20 Attending Provider on Discharge: Mike Wheatley Consulting Providers: Ezra Hoffman ; Rosio Greene ; Kedar Hameed ; Physician,[place] ; Miles Morgan ; Gianni Swift ; Lauren Weston ; Reynaldo Smalls ; Moses Olvera ; Lorena Whitlock ; Rashmi Alford ; Davon Ruiz ; Lg Benedict ; Zuly Collins ; Hunter Carter ; Dominik Way ; Caleb Phillips ; Kevin Yoder ; Dennis Saravia ; Ines Carbajal ; Rosemary Contreras ; Sherita Steward ; Viviana Greco ; Abdoul Mendoza ; Rubén Christopher ; Michael Norman ; Robyn Castrejon ; Martina Palma ; Audi Triplett Primary Care Provider: Provider,Not a Local Condition: Stable Anticipated Discharge Date/Time: 09/26/22 10:00 Discharge Medications: New sennosides [Senna Lax] 8.6 mg Tablet 17.2 mg PO BID PRN (Reason: constipation) Qty: 100 0RF oxycodone 5 mg Tablet 2.5 - 5 mg PO Q4-6H MDD 6 tabs per day PRN (Reason: Pain) Qty: 42 0RF Rx Instructions: Minimize. Discontinue as soon as possible Continued baclofen 20 mg tablet 20 mg PO TID acetaminophen [Tylenol Extra Strength] 500 mg tablet 1,000 mg PO BID dalfampridine 10 mg tablet extended release 12 hr 10 mg PO Q12H Fish Oil 100-160-1,000 mg capsule 1 cap PO DAILY fluticasone propionate 50 mcg/actuation spray,suspension 2 spray intranasal QPM Avonex 30 mcg/0.5 mL pen injector 0.5 ml IM QWEEK Label Comments: PATIENT TAKES ON FRIDAY multivitamin Tablet 1 tab PO QDAY propranolol 60 mg tablet 60 mg PO BID sertraline 50 mg tablet 50 mg PO QDAY tamsulosin 0.4 mg capsule 0.8 mg PO BID warfarin 2.5 mg tablet 2.5 mg PO DAILY Rx Instructions: TAKING 5 MG ON MONDAYS AND THURSDAYS, 2.5 MG ALL OTHER DAYS OF WEEK INR GOAL OF 2.5 gabapentin 100 mg capsule 400 mg PO BID gabapentin 100 mg capsule 300 mg PO DAILY@12 Held aspirin 81 mg tablet,delayed release (DR/EC) 81 mg PO DAILY Hold Instructions: Resume on 10/02/22. Discharge Orders: Discharge Order (Routine); Ordered 09/26/22 Ordered By: Davon Ruiz Consulting provider completed their portion of the discharge: Yes Additional Instructions: PT an OT daily at [facility] Activity Detail: Wear the sling for 6 weeks post-surgery. Take it off for comfort and for exercises. Activity: no external rotation of the operative shoulder past 0? x 6 weeks. Forward flexion and abduction of the shoulder is allowed as tolerated. Range of motion of the elbow, wrist, fingers once the block has worn off on the operative extremity 3 or more times per day. Physical therapy and occupational therapy at [facility] daily. If you Drive, Do not drive while on narcotic pain medication. Drive only when safe to do so, when you have normal use/function of the upper extremity, this will likely take 6 weeks due to wearing a sling. Minimize and discontinue the narcotic as soon as possible. Remove dressing in 1 week. Dressing is waterproof. May shower. Surgical glue covers the wound. Do not scrub the wound. Expect swelling and bruising about the shoulder and upper extremity. Use of ice/active ice without restriction. notify Orthopedics with any questions or concerns [phone]. Return to Orthopedic clinic next week for a wound check as scheduled Return to clinic in [address] Wheatley. Discharge Diet: Regular Follow Up Appointments: [facility] [Outside] Forms: Work/School Release Admit to: SNF Discharge Potential: Fair Length of Stay: <30 days Can use facility standing orders?: Yes Code Status: Full Code TEDs: Bilateral Knee Therapy: Physical Therapy and Occupational Therapy Therapy Orders: Evaluate and Treat Therapy Orders Additional Information: OT and PT at [facility] daily Oxygen: No Next INR: 09/27/2022 INR Goal: 2-3 Orders are good >30 days: Yes Signature: Davon Ruiz
[2022-09-26] MEDS: WARFARIN 5 MG TABLET PO (17:24)
--- NOTE | 2022-09-26 17:58 | PC.NURSE ---
PATIENT PLEASANT AND COOPERATIVE, ALERT AND ORIENTED, UP WITH A1 WALKER AND BELT TOLERATING FAIRLY, PATIENT HAS ESSENTIAL TREMORS IN UPPER ARMS AND IT OFTEN MAKES IT HARD TO HOLD THE WALKER STEADY, NEED ASSISTANCE WITH EATING ALTHOUGH HAS BEEN ABLE INTERMITTENTLY TO FEED SELF, TOLERATING REGULAR DIET, RATING PAIN IN LEFT SHOULDER 5-10 BEING MANAGED WITH PRN OXYCODONE AND SCHEDULED TYLENOL, SLING TO LEFT SHOULDER, DRESSING CDI, PATIENT PREFERS ACTIVE ICE TO SHOULDER OVER CYRO CUFF.
[2022-09-27] MEDS: ACETAMINOPHEN 500 MG TABLET 1000 MG PO ×2 (00:31→06:39)
[2022-09-27 00:34] VITALS: BP 131/92; PULSE 76; RESP 20; TEMP 36.6; O2SAT 97
[2022-09-27 03:43] VITALS: BP 135/79; PULSE 66; RESP 20; TEMP 36.9; O2SAT 97
[2022-09-27] MEDS: ENOXAPARIN 60 MG/0.6 ML INJ SUBCUT (05:03)
[2022-09-27] MEDS: GABAPENTIN 100 MG CAPSULE 400 MG PO (05:03)
--- NOTE | 2022-09-27 06:47 | PC.NURSE ---
Status [id number] Alert and oriented. Pleasant and cooperative. Receiving scheduled Tylenol for left shoulder pain. Utilizing active ice to left shoulder as well. PRN oxy offered but patient hesitant and refused d/t how it made him feel. Left arm remains in sling overnight. Dressing CDI. VSS on room air. Up with assist of 1 with walker/belt to bathroom. Using call light appropriately. Pt observed resting between cares. Plan to d/c to [facility] today at 0900 via EMS. ???
[2022-09-27 06:51] LABS: Hemoglobin* 9.3 gm/dL (13.5-17.5); Mean Corpuscular HGB Conc 33 gm/dL (32-36); Mean Corpuscular Hemoglobin 31 pg (26-34); Mean Corpuscular Volume 94 fL (80-100); Platelet Count* 154 K/uL (140-440); Potassium* 4.1 mmol/L (3.6-5.1); Red Blood Count 2.99 m/uL (4.30-5.90); Sodium* 139 mmol/L (135-149); White Blood Count* 5.12 K/uL (4.50-11.00)
[2022-09-27 06:54] LABS: Blood Urea Nitrogen* 30 mg/dL (7-30); Creatinine* 0.9 mg/dL (0.5-1.5); Est. Creatinine Clearance* 64.89; Estimated Glomerular Filt Rate 89 ml/min
[2022-09-27 06:56] LABS: Slide Review Reflex No
[2022-09-27 07:00] VITALS: BP 98/65; PULSE 89; RESP 16; TEMP 36.7; O2SAT 97
[2022-09-27] MEDS: SENNOSIDES 1 TAB TABLET 2 TAB PO (09:10)
[2022-09-27] MEDS: TAMSULOSIN HCL 0.4 MG CAPSULE 0.8 MG PO (09:10)
[2022-09-27] MEDS: OXYCODONE 5 MG TABLET PO (09:11)
[2022-09-27] MEDS: BACLOFEN 10 MG TABLET 20 MG PO (09:11)
[2022-09-27] MEDS: DALFAMPRIDINE 10 MG PO (09:11)
[2022-09-27] MEDS: SERTRALINE 50 MG TABLET PO (09:11)
--- NOTE | 2022-09-27 12:25 | PC.NURSE ---
PATIENT DISCHARGED TO [address] [place] [address], ALERT AND ORIENTED PLEASANT AND COOPERATIVE, NURSE TO NURSE REPORT GIVEN TO MANUEL, TOLERATING REGULAR DIET WAS ABLE TO FEED SELF THIS MORNING WITH WEIGHT SPOON ALTHOUGH DID NEED SET UP, RATING PAIN 2/10 IN LEFT SHOULDER BEING MANGED WITH PRN OXYCODONE, UP WITH A1 WALKER AND BELT, ICE PACK TO LEFT SHOULDER, LEFT VIA EMS TO [facility] AROUND 1015.
--- NOTE | 2022-09-27 17:05 | P.IMPN_ITS ---
Progress Note: A&P Assessment and plan (1) Rotator cuff tear arthropathy of left shoulder: Status: Acute (2) Status post reverse arthroplasty of left shoulder: Problem details: 09/24/2022, Dr. 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 Patient ready for discharge to skilled nursing for transitional care services. 2. Answered his questions. 3. He is agreeable. 4. Proceed as planned and set up yesterday. Time Spent With Patient Total time spent: 20 minutes Subjective Time Seen by Provider: 08:00 Date Seen: 09/27/22 Interval history: Hospital day 4. For summary they were unable to arrange for transportation to the skilled nursing yesterday. He stayed overnight in the hospital last night and is ready to be discharged today now that transportation has been arranged. He requires special transportation. That special transportation was not available yesterday, nonemergent ambulance transfer. Feeling well and doing well today. Ready for discharge. No questions or concerns. Exam Narrative: Exam Narrative: Appears comfortable and in no acute distress. Lungs are clear. Heart tones regular. Abdomen benign. Able to feed himself with his left hand. Still has the strong tremor on the rig ht side which is chronic for him. Requires assistance with many of his ADLs. Const: Vital Signs, click to edit/add: Vital Signs - 24 hr 09/26/22 19:04 09/26/22 19:30 09/26/22 23:00 Temperature 97.8 F 99.1 F Pulse Rate [Pulse Oximeter] 78 Respiratory Rate 18 18 Blood Pressure [Ri ght Arm] 116/79 Pulse Oximetry 96 Oxygen Delivery Me thod Room Air Oxygen Flow Rate 09/27/22 00:34 09/27/22 03:43 09/27/22 07:00 Temperature 97.8 F 98.5 F Pulse Rate [Pulse Oximeter] 76 66 89 Respiratory Rate 20 20 Blood Pressure [Ri ght Arm] 131/92 H 135/79 Pulse Oximetry 97 97 Oxygen Delivery Me thod Room Air Room Air Oxygen Flow Rate 09/27/22 07:00 Temperature 98.0 F Pulse Rate [Pulse Oximeter] 89 Respiratory Rate 16 Blood Pressure [Ri ght Arm] 98/65 Pulse Oximetry 97 Oxygen Delivery Me thod Room Air Oxygen Flow Rate 0 Documenting provider has reviewed patient's vital signs: yes Labs Labs: Laboratory Results - last 24 hr 09/27/22 09/27/22 06:26 06:26 WBC 5.12 RBC 2.99 L Hgb 9.3 L Hct 28.0 L MCV 94 MCH 31 MCHC 33 Plt Count 154 Sodium 139 Potassium 4.1 BUN 30 Creatinine 0.9 Estimated Creat Clear 64.89 Estimated GFR 89
== END 2022-09-27 10:15 | DRG 508 ==
LOC: OR 10:53 → MEDSURG 19:20
PROVIDERS: Hospitalist; Admitting Provider Family Medicine; Visit Provider Orthopaedic Surgery
PROC: 0RRJ0JZ Replacement of Right Shoulder Joint with Synthetic Substitute, Open Approach (ICD-10-PCS; CPT 23472; principal; 2022-09-24 08:30)
DX: M75.122 Complete rotator cuff tear or rupture of left shoulder, not specified as traumatic (principal); M25.412 Effusion, left shoulder; G35 Multiple sclerosis; I10 Essential (primary) hypertension; I48.91 Unspecified atrial fibrillation; G25.0 Essential tremor; Z79.01 Long term (current) use of anticoagulants; G50.0 Trigeminal neuralgia; F10.20 Alcohol dependence, uncomplicated; Z86.73 Personal history of transient ischemic attack (TIA), and cerebral infarction without residual deficits
CPT/HCPCS: 01638; 36415; 64415; 73030; 76942; 80048; 82565; 84132; 84295; 84520; 85025; 85027; 85610; 97110; 97116; 97163; 97165; 97530; 97535; 99100; A9270; C1713; C1776; J0330; J1100; J1650; J2250; J2405; J2704; J2795; J3010; J7120

== ENCOUNTER 2022-09-27 10:05 | Outpatient (CLI) | payer MEDICARE, BC, SELFPAY | END 2022-09-27 10:06 | disposition home or self-care (01) | PROVIDERS: PCP Physician Assistant Surgical; Visit Provider Family Medicine | DX: Z99.3 Dependence on wheelchair (principal) | CPT/HCPCS: A0425; A0428 ==

== ENCOUNTER 2023-06-05 11:35 | Inpatient (IN) | payer MEDICARE, BC, SELFPAY ==
[2023-06-03] VITALS (24 sets, daily range): BP systolic 96–171; BP diastolic 48–92; PULSE 43–100; RESP 14–20; TEMP 36.1–36.6; O2SAT 87–100; BMI 23.1
[2023-06-03] MEDS: CELECOXIB 200 MG CAPSULE PO (07:45)
[2023-06-03] MEDS: OXYCODONE (CR) 10 MG TAB.ER.12H PO (07:45)
[2023-06-03] MEDS: ACETAMINOPHEN 500 MG TABLET 1000 MG PO ×3 (07:45→20:22)
[2023-06-03] MEDS: LACTATED RINGERS 1000 ML 1,000 ML 100 ML IV ×2 (07:45→10:03)
[2023-06-03] MEDS: SODIUM CHLORIDE 0.9 % (FLUSH) 10 ML SYRINGE IVF (08:31)
[2023-06-03] MEDS: MIDAZOLAM HCL 1 MG/ML inj IVP (08:45)
[2023-06-03] MEDS: fentaNYL 100 MCG/2 ML inj IVP (08:45)
--- NOTE | 2023-06-03 08:46 | SUR.PREOP ---
TIME?OUT:?0845 PT/RN/MDA?VERIFICATION?OF?SURGICAL?SITE,?PROCEDURE,?AND?CONSENT OBTAINED?PRIOR?TO?INVASIVE?PROCEDURE.
[2023-06-03] MEDS: CEFAZOLIN 2 GM INJ IVP (09:15)
[2023-06-03] MEDS: TRANEXAMIC ACID 100 MG/ML INJ 1000 MG IV (09:20)
--- NOTE | 2023-06-03 10:38 | W.ANESCHARGE ---
Anesthesia Charges Start Date/Time Anesthesia Start Date: 06/03/23 Anesthesia Start Time: 09:10 Stop Date/Time Anesthesia Stop Date: 06/03/23 Anesthesia Stop Time: 11:45 Summary Extremes of Age - Over 70 or under 1: MDA
--- NOTE | 2023-06-03 10:38 | W.PM.NB ---
Nerve Block Nerve Block Time Seen by Provider: 08:51 Date Seen: 06/03/23 Type of block requested by surgeon for post-operative analgesia: supraclavicular Side: right Time out performed: Yes Verification of patient name: Yes Verification of date of : Yes Site marking: site marked Name of person performing procedure: Efraín Continuous monitoring Was continuous monitoring of O2 sat, B/P, manager monitoring, recorded every 15 minutes?: Yes Procedure Checklist: sterile prep, needles and gloves Ultrasound guided. Images saved: Yes Medications given in 5ml increments after negative aspiration: Marcaine %: 0.25 mL: 10 Needle gauge: 22 and Exparel mL: 10 Needle gauge: 22 Patient tolerated procedure well: Yes Block Charges Block Charge (with Pro Fee): Brachial Plexus Use of Ultrasound Machine for Block: Yes- US Guidance/pain block
--- NOTE | 2023-06-03 11:06 | CRLHL7_ITS ---
For Patients: As a result of the Cures Act, medical imaging exams and procedure reports are released immediately into your electronic medical record. You may view this report before your referring provider. If you have questions, please contact your health care provider. Indication: Postop Technique: Two views right shoulder Findings/Impression: Hardware from a right total shoulder arthroplasty is in satisfactory position. Bone alignment is normal. No sign of acute fracture. Postop changes are within normal limits. Dictated by Anjum Corona MD @ 06/03/2023 12:28:02 PM (Electronically Signed)
--- NOTE | 2023-06-03 11:09 | PM.ORPRC ---
Procedure Note Date of procedure: 06/03/23 Procedure: PREOPERATIVE DIAGNOSIS: Right shoulder rotator cuff tear arthropathy POSTOPERATIVE DIAGNOSIS: Right shoulder rotator cuff tear arthropathy NAME OF OPERATION: Right upper extremity reverse shoulder arthroplasty SURGEON: Mike Wheatley MD INDIRECT SALES REPRESENTATIVE: Barbara Morales PA-C, ANIKET Ruiz ANESTHESIA: General endotracheal ESTIMATED BLOOD LOSS: 100 mL COMPLICATIONS: None SPECIMENS: None DRAINS: None PREOPERATIVE ANTIBIOTICS: Ancef 2 grams IMPLANTS: 1. Tornier 25mm x 35 mm baseplate 2. 36mm standard glenosphere 3. 7B humeral stem 4. Low eccentric +0 humeral tray 5. 36mm +6 polyethylene INDICATIONS: The patient is a 77-year-old with a longstanding history of severe, unrelenting right shoulder pain secondary to rotator cuff tear arthropathy. Despite appropriate nonoperative management, including activity modification, anti-inflammatories, [id number] pain medication, physical therapy, and injections they continue to have pain and disability. Operative intervention was offered. The risks, benefits and expected outcomes were discussed in detail. These included but were not limited to: Infection, bleeding, injury to blood vessel or nerve, venous thromboembolism. All questions were answered to their satisfaction. Use of an head start assistant teacher was necessary throughout the case for patient positioning and safety, soft tissue retraction, and closure. PROCEDURE: General anesthesia was administered. The patient was placed in the lazy beach chair position on the operating room table. The right upper extremity was prepped and draped in the usual sterile fashion. A standard deltopectoral incision was made. Subcutaneous dissection was taken with electrocautery to the deltopectoral interval. The cephalic vein was mobilized, lateral branches were cauterized. The vein was taken medially with the pectoralis. We bluntly entered the deltopectoral interval. We freed up the deltoid. The upper 1/3 of the insertion of the pectoralis was divided with cautery. The static retractor was placed. The clavipectoral fascia and CA ligament were divided. The circumflex vessels were controlled with electrocautery. The biceps was dissected out of the bicipital groove, was tagged with a #2 FiberWire suture and divided proximally. Two fiberWire sutures were placed in the subscapularis. The subscap was subperiosteally elevated off of the lesser tuberosity. The humeral head was delivered into the wound. The intramedullary humeral cutting guide was placed. We made the cut at the anatomic neck, in 30? of retroversion. Humeral sounds were used to assess the diameter of the canal. The broach was placed and had good rotational stability. The calcar reamer was used and the protective base plate cover was placed. Attention was then turned to the glenoid. Hohmann retractors were placed posteriorly. The labrum and biceps stump were sharply debrided. The origin of the inferior glenohumeral ligaments were subperiosteally released off of the glenoid. The drill guide was placed. The guide pin was placed in 0? of cephalic tilt. The reamer was used to bleeding bone. The central drill was used x2. The tap was used. The standard base plate was placed. This had excellent purchase. Locking screws were placed. The glenosphere was placed, the set screw was tightened. Attention then returned to the humerus. We placed a low eccentric standard base plate and standard poly. We reduced the shoulder and took it through a range of motion. It was found to be stable with appropriate soft tissue tension. Trial humeral components were removed. The biceps was tenodesed in the bicipital groove with drill holes and our previously placed FiberWire suture. We placed #2 FiberWire sutures in the lesser tuberosity for subsequent subscap repair. We assembled the humeral component on the back table. We placed it in the center of our subscapularis repair sutures and tapped it down to our humeral cut. This had excellent purchase. The shoulder was reduced and again was found to be stable with appropriate soft tissue tension. We did a 3 min dilute Betadine solution soak. We irrigated the wound with 3 L of normal saline via pulse lavage. We repaired the subscapularis to the lesser tuberosity with our previously placed FiberWire sutures. The deltopectoral interval was loosely reapproximated with an 0 Vicryl in an interrupted [id number] fashion. Subcutaneous tissues were closed with the 2-0 Vicryl and a running 3-0 Monocryl suture. The skin was sealed with glue. A dry dressing and sling were applied. Sponge and needle counts were correct x2. The patient tolerated the procedure well, there were no apparent complications. They were awakened and extubated in the operating room, taken to the postanesthesia care unit in satisfactory condition. PLAN: The patient will be mobilized with physical therapy. The sling will be used for 6 weeks postoperatively. Active range of motion in forward flexion and abduction as tolerates. No external rotation greater than 0? for 6 weeks postoperatively. They will be discharged to to a care home facility once medically appropriate.
--- NOTE | 2023-06-03 11:52 | W.ANESCHARGE ---
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
--- NOTE | 2023-06-03 12:33 | SUR.PHASEI ---
patient met discharge criteria per anesthesia
[2023-06-03] MEDS: HYDROmorphone 0.5 mg/0.5 ml inj IVP ×2 (13:59→17:31)
--- NOTE | 2023-06-03 14:29 | PC.SOCIAL ---
Per therapy, pt is requesting SNF for discharge plans. Pt previously went to [facility] (granddaughter works at this facility). Phone call to Makayla in admissions to see if she has been in contact with pt or pt's family. Makayla requests that initial referral be sent to [facility] today. Secure e-mailed referral to Makayla in admissions. Makayla will check to see if pt has MA since last visit. Social work will follow up as needed.
--- NOTE | 2023-06-03 15:33 | P.IMPN_ITS ---
Progress Note: A&P Assessment and plan (1) [facility] (current) use of anticoagulants: Status: Acute (2) Trigeminal neuralgia: Status: Acute (3) HTN (hypertension): Status: Acute (4) Multiple sclerosis: Problem details: Continue with weekly injections of interferon Status: Acute Plan 1. s/p Right upper extremity reverse shoulder arthroplasty; pain control; diet, dvt ppx per surgery 2. Hx of Atrial fibrillation; hold BB for now due to bradycardia; continue warfarin 3. Hx of MS; continue baclofen, dalfampridine 4. Hx of trigeminal neuralgia; continue gabapentin 5. Hx of neurogenic bladder; continue flomax 6. Hx of HTN; hold BB 7. Hx of CVA; resume aspirin tomorrow 8. Hx of depression; on zoloft Subjective Date Seen: 06/03/23 Interval history: POSTOPERATIVE DIAGNOSIS: Right shoulder rotator cuff tear arthropathy NAME OF OPERATION: Right upper extremity reverse shoulder arthroplasty ANESTHESIA: General endotracheal ESTIMATED BLOOD LOSS: 100 mL patient is bradycardic after surgery but otherwise HD stable denies chest pain denies SOB tolerating diet pain controlled Exam Narrative: Exam Narrative: Gen: no acute dist ress HEENT: NCAT E STACEY mmm Neck: Supp le CV: RRR normal s1 s2 Lungs: CTAB Abd: Soft,nt, nd N euro: Alert, orien galen, CN grossly in tact; resting trem or Psych: appropri ate affect MSK: ag e appropriate musc le mass Skin; Warm , dry no rash on f erick Const: Vital Signs, click to edit/add: Vital Signs - 24 hr 06/03/23 08:25 06/03/23 08:45 06/03/23 08:50 Temperature 97.9 F Pulse Rate 54 L 44 L 50 L Respiratory Rate 16 16 16 Blood Pressure 170/85 H 148/70 H 142/67 H Pulse Oximetry 98 100 100 Oxygen Delivery Me thod Room Air Nasal Cannula Nasal Cannula Oxygen Flow Rate 2 2 06/03/23 09:00 06/03/23 11:42 06/03/23 11:45 Temperature 97 F L 97 F L Pulse Rate 48 L 61 60 Respiratory Rate 16 16 15 Blood Pressure 138/71 115/69 108/62 Pulse Oximetry 100 98 97 Oxygen Delivery Me thod Nasal Cannula Nasal Cannula Nasal Cannula Oxygen Flow Rate 2 5 5 06/03/23 11:50 06/03/23 11:55 06/03/23 12:00 Temperature 97 F L 97 F L 97 F L Pulse Rate 59 L 60 60 Respiratory Rate 20 18 15 Blood Pressure 171/48 H 127/74 129/81 Pulse Oximetry 97 99 96 Oxygen Delivery Me thod Nasal Cannula Nasal Cannula Nasal Cannula Oxygen Flow Rate 5 5 2 06/03/23 12:05 06/03/23 12:10 06/03/23 12:15 Temperature 97 F L 97 F L 97 F L Pulse Rate 53 L 59 L 58 L Respiratory Rate 14 16 14 Blood Pressure 133/80 130/81 131/79 Pulse Oximetry 97 98 94 Oxygen Delivery Me thod Nasal Cannula Room Air Room Air Oxygen Flow Rate 2 0 0 06/03/23 12:20 Temperature 97.1 F L Pulse Rate 56 L Respiratory Rate 16 Blood Pressure 138/77 Pulse Oximetry 94 Oxygen Delivery Me thod Room Air Oxygen Flow Rate 0
[2023-06-03] MEDS: CEFAZOLIN 2 GM in 0.9 % SODIUM CHLORIDE Mini-bag 100 ML IVPB (16:40)
[2023-06-03] MEDS: GABAPENTIN 100 MG CAPSULE PO ×2 (18:13→23:54)
[2023-06-03] MEDS: WARFARIN 5 MG TABLET PO (18:13)
[2023-06-03] MEDS: GABAPENTIN 300 MG CAPSULE PO ×2 (18:13→23:54)
[2023-06-03] MEDS: TAMSULOSIN HCL 0.4 MG CAPSULE 0.8 MG PO (18:16)
--- NOTE | 2023-06-03 20:09 | PC.NURSE ---
Nursing Care Hours: [id number] Pt this shift arrived from PACU alert and oriented. CMS intact, pulses normal. Pt able to feel junior technical writer touch hand, c/o burning feeling to R shoulder. Kinesiology Internship explained effects of nerve blocks. Dressing CDI, cryocuff in place. Occassionaly bradycardic and O2 saturation would fall to 87% but with a deep breath, would rise back to 96%. IS given and pt educated on use, pt used independently. Up to toilet with 2 assist using gait belt and quad-cane. Unable to void, attempted x2. Pt states something like this happened before where it took longer to void. Eating and drinking sufficiently. Up in chair.
[2023-06-03] MEDS: BACLOFEN 10 MG TABLET 20 MG PO (20:21)
[2023-06-03] MEDS: SENNOSIDES 1 TAB TABLET 2 TAB PO (20:21)
[2023-06-03] MEDS: HYDROCODONE-ACETAMIN 5-325 MG 1 TAB PO (21:46)
[2023-06-04] VITALS (7 sets, daily range): BP systolic 98–156; BP diastolic 57–82; PULSE 71–90; RESP 12–20; TEMP 36.5–37.4; O2SAT 89–99
[2023-06-04] MEDS: CEFAZOLIN 2 GM in 0.9 % SODIUM CHLORIDE Mini-bag 100 ML IVPB (01:05)
[2023-06-04] MEDS: HYDROmorphone 0.5 mg/0.5 ml inj IVP ×2 (03:29→11:44)
[2023-06-04] MEDS: GABAPENTIN 300 MG CAPSULE PO ×4 (06:00→23:57)
[2023-06-04] MEDS: GABAPENTIN 100 MG CAPSULE PO ×4 (06:00→23:57)
[2023-06-04 06:52] LABS: Hematocrit 35.1 % (37.0-53.0); Hemoglobin* 11.8 gm/dL (13.5-17.5); Mean Corpuscular HGB Conc 34 gm/dL (32-36); Mean Corpuscular Hemoglobin 31 pg (26-34); Mean Corpuscular Volume 91 fL (80-100); Platelet Count* 203 K/uL (140-440); Red Blood Count 3.85 m/uL (4.30-5.90); White Blood Count* 7.19 K/uL (4.50-11.00)
--- NOTE | 2023-06-04 06:57 | PC.NURSE ---
A&O, pleasant and cooperative. VSS w/ sats >90% on RA. Pt attempted to void w/ no success. Bladder scanned for 72cc and straight cathed for 900cc at 2100. This morning pt was still unable to void and complaining about having an urge to go. Bladder scan done and pt straight cathed for 600cc. Pt expressed ?relief? after being cathed. Pt complains of 5-6/10 shoulder pain. See eMAR for interventions. At the beginning of shift pt was A1-2 to bathroom. This morning pt states his right leg was stiff. He was unable to ambulate to the bathroom. was able to pivot to commode w/ A2. Denies SOB and n/v. ? ?
[2023-06-04 07:12] LABS: Sodium* 136 mmol/L (135-149)
[2023-06-04 07:13] LABS: Potassium* 4.2 mmol/L (3.6-5.1)
[2023-06-04 07:15] LABS: Creatinine* 0.8 mg/dL (0.5-1.5); Est. Creatinine Clearance* 64.89; Estimated Glomerular Filt Rate 92 ml/min
[2023-06-04 07:16] LABS: Blood Urea Nitrogen* 24 mg/dL (7-30)
[2023-06-04 08:09] LABS: Slide Review Reflex No
[2023-06-04] MEDS: SERTRALINE 50 MG TABLET PO (09:12)
[2023-06-04] MEDS: SENNOSIDES 1 TAB TABLET 2 TAB PO ×2 (09:12→20:46)
[2023-06-04] MEDS: BACLOFEN 10 MG TABLET 20 MG PO ×3 (09:12→20:46)
[2023-06-04] MEDS: ASPIRIN 81 MG TABLET EC PO (09:12)
[2023-06-04] MEDS: ACETAMINOPHEN 500 MG TABLET 1000 MG PO (09:13)
--- NOTE | 2023-06-04 09:18 | P.ORPN_ITS ---
Subjective Subjective Time Seen by Provider: 07:45 Date Seen: 06/04/23 Principal diagnosis: Status post right reverse shoulder replacement Interval history: He has had urinary retention. He is having trouble with his right leg numbness and stiffness with difficulty ambulating, especially having the right arm in a sling. He fell 3 months ago states the right leg has been having problems since then. patient is bradycardic after surgery but otherwise HD stable denies chest pain denies SOB tolerating diet pain , speaks of burning over the shoulder area. Ortho Exam Narrative Exam Narrative: Alert and oriented x3. Patient is in no acute distress. Converses without labored breathing. Hearing is grossly intact. Been is not ambulating well. He is requiring significant assistance. Lying in bed he is able to flex his hip and knee and ankle. He is able to presses knee into the bed against resistance. He is able to dorsiflex the ankle against resistance. Bilateral calves are soft and nontender. Dressing is intact right shoulder. Mild edema right shoulder. He is able to flex and extend the wrist. He is able to perform thumbs up. Block is indeed wearing off. He is in a sling and cryo Cuff. Const Vital Signs, click to edit/add: Vital Signs - 24 hr 06/03/23 11:42 06/03/23 11:45 06/03/23 11:50 Temperature 97 F L 97 F L 97 F L Pulse Rate 61 60 59 L Pulse Rate [Left Pulse Oximeter] Pulse Rate [Right Radial] Respiratory Rate 16 15 20 Blood Pressure 115/69 108/62 171/48 H Blood Pressure [Left Arm] Pulse Oximetry 98 97 97 Oxygen Delivery Method Nasal Cannula Nasal Cannula Nasal Cannula Oxygen Flow Rate 5 5 5 06/03/23 11:55 06/03/23 12:00 06/03/23 12:05 Temperature 97 F L 97 F L 97 F L Pulse Rate 60 60 53 L Pulse Rate [Left Pulse Oximeter] Pulse Rate [Right Radial] Respiratory Rate 18 15 14 Blood Pressure 127/74 129/81 133/80 Blood Pressure [Left Arm] Pulse Oximetry 99 96 97 Oxygen Delivery Method Nasal Cannula Nasal Cannula Nasal Cannula Oxygen Flow Rate 5 2 2 06/03/23 12:10 06/03/23 12:15 06/03/23 12:20 Temperature 97 F L 97 F L 97.1 F L Pulse Rate 59 L 58 L 56 L Pulse Rate [Left Pulse Oximeter] Pulse Rate [Right Radial] Respiratory Rate 16 14 16 Blood Pressure 130/81 131/79 138/77 Blood Pressure [Left Arm] Pulse Oximetry 98 94 94 Oxygen Delivery Method Room Air Room Air Room Air Oxygen Flow Rate 0 0 0 06/03/23 12:30 06/03/23 12:45 06/03/23 13:30 Temperature Pulse Rate Pulse Rate [Left Pulse Oximeter] 60 56 L 64 Pulse Rate [Right Radial] Respiratory Rate 16 16 18 Blood Pressure Blood Pressure [Left Arm] 140/76 H 142/89 H 137/85 Pulse Oximetry 94 91 90 Oxygen Delivery Method Room Air Room Air Room Air Oxygen Flow Rate 06/03/23 14:00 06/03/23 14:28 06/03/23 15:40 Temperature Pulse Rate 55 L Pulse Rate [Left Pulse Oximeter] 80 85 Pulse Rate [Right Radial] Respiratory Rate 18 16 18 Blood Pressure Blood Pressure [Left Arm] 132/88 99/66 Pulse Oximetry 87 L 89 Oxygen Delivery Method Room Air Room Air Room Air Oxygen Flow Rate 06/03/23 16:00 06/03/23 17:00 06/03/23 18:00 Temperature Pulse Rate Pulse Rate [Left Pulse Oximeter] 43 L 100 54 L Pulse Rate [Right Radial] Respiratory Rate 18 18 Blood Pressure Blood Pressure [Left Arm] 96/63 126/77 136/82 Pulse Oximetry 93 96 Oxygen Delivery Method Room Air Room Air Room Air Oxygen Flow Rate 06/03/23 20:30 06/03/23 23:37 06/04/23 03:00 Temperature 97.1 F L 97.7 F Pulse Rate Pulse Rate [Left Pulse Oximeter] 64 55 L Pulse Rate [Right Radial] 71 Respiratory Rate 18 18 18 Blood Pressure Blood Pressure [Left Arm] 153/92 H 136/84 144/72 H Pulse Oximetry 96 95 99 Oxygen Delivery Method Room Air Room Air Room Air Oxygen Flow Rate 06/04/23 09:15 Temperature 99 F Pulse Rate Pulse Rate [Left Pulse Oximeter] Pulse Rate [Right Radial] 78 Respiratory Rate 20 Blood Pressure Blood Pressure [Left Arm] 156/79 H Pulse Oximetry 94 Oxygen Delivery Method Room Air Oxygen Flow Rate Assessment and Plan Assessment and plan (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 He will continue straight cath for now since he is not able to urinate. Patient will wear the sling for 6 weeks post surgery. They can take it off for comfort and for exercises. Activity: no external rotation of the operative shoulder past 0? x 6 weeks. Forward flexion and abduction of the shoulder is allowed as tolerated. They will work on range of motion of the elbow, wrist, fingers once the block has wore off on the operative extremity. Continue OT and PT Patient will begin physical therapy for the operative shoulder next week. For discharge, hydrocodone and Tylenol for pain. 0417-7625 mg of Tylenol max per day. No driving Patient will minimize and discontinue the narcotic as soon as possible. Remove dressing in 1 week. Dressing is waterproof. May shower. Surgical glue covers the wound. Do not scrub the wound. Expect swelling and bruising about the shoulder and upper extremity. Use of ice/active ice without restriction. Notify Orthopedics his swelling is excessive. notify Orthopedics with any questions or concerns. [phone] Return to Orthopedic clinic next week for a wound check Return to clinic in [address] Wheatley.
--- NOTE | 2023-06-04 14:32 | P.IMPN_ITS ---
Subjective Time Seen by Provider: 08:00 Date Seen: 06/04/23 Interval history: Hospital day 2. Postoperative day 1, status post right total shoulder arthroplasty. 77-year-old man with advanced multiple sclerosis undergoes elective right total shoulder arthroplasty yesterday successfully. Baseline gait is unstable in the 1st place, warranting use of roller walker. Now he is unable to uses roller walker because of the right total shoulder arthroplasty status. Previously had left total shoulder arthroplasty. Did warrant transitional care services after his left total shoulder arthroplasty, although this occurred during COVID pandemic and Medicare had allowed patient is to transfer from hospital to residential without the need to follow usual guidelines. Right shoulder pain present. Trigeminal neuralgia well controlled. Does have recurrence of urinary retention as he has had before. Does taken alpha-carey regularly. Postvoid residual last night was 1000 mL. Straight cath undertaken. Exam Narrative: Exam Narrative: Examined patient in his hospital room. Appears comfortable no acute distress. Speaks softly. Vision and hearing are adequate. Alert and oriented to self, place, time, situation. Friendly, cooperative. Lungs clear to auscultation. Heart tones with regular rhythm. Abdomen with active bowel sounds, soft, nontender. Extremities without edema. All ready moving all 4 extremities, including right shoulder. Const: Vital Signs, click to edit/add: Vital Signs - 24 hr 06/03/23 15:40 06/03/23 16:00 06/03/23 17:00 Temperature Pulse Rate [Left P ulse Oximeter] 85 43 L 100 Pulse Rate [Right Radial] Respiratory Rate 18 18 Blood Pressure [Le ft Arm] 99/66 96/63 126/77 Pulse Oximetry 89 93 96 Oxygen Delivery Me thod Room Air Room Air Room Air 06/03/23 18:00 06/03/23 20:30 06/03/23 23:37 Temperature 97.1 F L Pulse Rate [Left P ulse Oximeter] 54 L 64 55 L Pulse Rate [Right Radial] Respiratory Rate 18 18 18 Blood Pressure [Le ft Arm] 136/82 153/92 H 136/84 Pulse Oximetry 96 95 Oxygen Delivery Me thod Room Air Room Air Room Air 06/04/23 03:00 06/04/23 09:15 06/04/23 11:52 Temperature 97.7 F 99 F 99.2 F Pulse Rate [Left P ulse Oximeter] Pulse Rate [Right Radial] 71 78 90 Respiratory Rate 18 20 18 Blood Pressure [Le ft Arm] 144/72 H 156/79 H 98/79 Pulse Oximetry 99 94 89 Oxygen Delivery Me thod Room Air Room Air Room Air Documenting provider has reviewed patient's vital signs: yes Labs Labs: Laboratory Results - last 24 hr 06/04/23 06:36 WBC 7.19 RBC 3.85 L Hgb 11.8 L Hct 35.1 L MCV 91 MCH 31 MCHC 34 Plt Count 203 Sodium 136 Potassium 4.2 BUN 24 Creatinine 0.8 Estimated Creat Clear 64.89 Estimated GFR 92
--- NOTE | 2023-06-04 14:42 | NUTR.NU ---
At breakfast patient called and needed help setting up his tray. I asked if he needed help cutting food up or anything patient said no I can feed myself as long as it's finger food.
[2023-06-04] MEDS: HYDROCODONE-ACETAMIN 5-325 MG 1 TAB PO (16:10)
--- NOTE | 2023-06-04 16:17 | PC.SOCIAL ---
Addendum entered by ANA PAULA Banuelos 06/04/23 16:26: Phone call to pt's daughter (Rossy Shin). Left a voicemail provided an update on discharge plans. Original Note: Discharge planning- Received a phone call from Makayla in admissions at [facility]. [facility] is declining pt for admission due to not having an available bed. Met with pt in pt's room to discuss discharge plans. Informed pt that pt would have to private pay for SNF stay since the Covid waiver is no longer in place. Pt was not aware, but informs that he has the ability to private pay. Pt would like this worker to seek placement near [place]. Pt would like this worker to check with [facility] in [place], informed pt that [facility] does not have openings at this time. Pt then stated he would like this worker to check with the [facility] in [place]. Pt states he will update his daughter. Phone call to Laura in admissions at the [facility] [place] at [phone]. Laura informs that they do have openings and requests this worker send a referral. Faxed referral to [phone]. Phone call to [facility] in [place] where pt currently resides. Spoke to nurse (Otoniel) and provided an update. Discussed whether it was an option for pt to have increased services. Otoniel informs that pt would need to be at baseline to return and states that their facility does not accept individuals back with surgery wounds. Informed Otoniel that this worker will work to locate a SNF for pt. Met with pt in room and provided update. Pt again asked about [facility] in [place], this worker informed pt that there was no openings. This worker will keep pt updated on progress. Social work will continue to follow up as needed.
[2023-06-04] MEDS: TAMSULOSIN HCL 0.4 MG CAPSULE 0.8 MG PO (18:39)
--- NOTE | 2023-06-04 19:22 | PC.NURSE ---
shift note: pt straight cath x2 per d.o. initial cath pt voided 400cc then cath for 700cc. Second cath pt had 500cc output. Pt rating lt neck pain this afternoon 03/17 and medicated with dilaudid 0.5mg IV. Pt requested pain intervention around 1600 and requested norco vs tylenol. cryo cuff on rt shoulder continuously. pt able to wiggle fingers. cap refill to rt fingers intact. rt arm in sling. drsg c/d/i. pulse to rt wrist intact. pt using elba for transfers due to bilat l/e weakness and per PT orders. LS dim pt using IS poorly to 500. Pt sats 89-90% RA. pt needing assistance with feeding due to visual problems. teds on. IV patent
[2023-06-04] MEDS: ACETAMINOPHEN 325 MG TABLET 650 MG PO (20:23)
[2023-06-04] MEDS: DALFAMPRIDINE 10 MG PO (20:46)
[2023-06-05] MEDS: 0.9 % SODIUM CHLORIDE 500 ML IV (00:30)
[2023-06-05 03:01] VITALS: BP 143/71; PULSE 65; RESP 18; TEMP 36.7; O2SAT 94
[2023-06-05] MEDS: GABAPENTIN 300 MG CAPSULE PO ×2 (06:03→13:30)
[2023-06-05] MEDS: GABAPENTIN 100 MG CAPSULE PO ×2 (06:03→13:30)
--- NOTE | 2023-06-05 06:42 | PC.NURSE ---
End of shift: A&O, pleasant and cooperative. VSS w/ sats >90% on RA. Dressing to right shoulder c/d/i. Sling on right shoulder. CMS intact. PRN Tylenol given for temp of 99.4. Pt has not wanted to take any pain medication overnight. Mcgowan placed overnight with minimal initial output. Bolus administered. Increased urine output noted. Pt has been sleeping throughout the shift but easy to arouse. Cryocuff to right shoulder. Turn and repo. Bed alarm in place. ? ?
[2023-06-05 07:00] VITALS: BP 157/85; PULSE 91; RESP 18; TEMP 37.7; O2SAT 92; O2SAT 95
[2023-06-05 07:35] LABS: Hematocrit 33.8 % (37.0-53.0); Hemoglobin* 11.5 gm/dL (13.5-17.5); Mean Corpuscular HGB Conc 34 gm/dL (32-36); Mean Corpuscular Hemoglobin 31 pg (26-34); Mean Corpuscular Volume 91 fL (80-100); Platelet Count* 158 K/uL (140-440); Red Blood Count 3.73 m/uL (4.30-5.90); White Blood Count* 7.45 K/uL (4.50-11.00)
[2023-06-05 07:39] LABS: Slide Review Reflex No
[2023-06-05 07:52] LABS: Potassium* 4.4 mmol/L (3.6-5.1); Sodium* 135 mmol/L (135-149)
[2023-06-05 07:55] LABS: Est. Creatinine Clearance* 64.89; Estimated Glomerular Filt Rate 78 ml/min
[2023-06-05 07:56] LABS: Blood Urea Nitrogen* 22 mg/dL (7-30)
[2023-06-05] MEDS: ASPIRIN 81 MG TABLET EC PO (08:24)
[2023-06-05] MEDS: SERTRALINE 50 MG TABLET PO (08:24)
[2023-06-05] MEDS: SENNOSIDES 1 TAB TABLET 2 TAB PO (08:24)
[2023-06-05] MEDS: BACLOFEN 10 MG TABLET 20 MG PO (08:25)
[2023-06-05] MEDS: ACETAMINOPHEN 500 MG TABLET 1000 MG PO (08:25)
[2023-06-05] MEDS: DALFAMPRIDINE 10 MG PO (08:25)
[2023-06-05] MEDS: HYDROCODONE-ACETAMIN 5-325 MG 1 TAB PO (09:56)
--- NOTE | 2023-06-05 11:29 | P.IMPN_ITS ---
Progress Note: A&P Assessment and plan (1) nursing home (current) use of anticoagulants: Status: Acute (2) Trigeminal neuralgia: Status: Acute (3) HTN (hypertension): Status: Acute (4) Multiple sclerosis: Problem details: Continue with weekly injections of interferon Status: Acute (5) Status post reverse total arthroplasty of right shoulder: Status: Acute Plan 1. Reviewed impression with patient 2. Answered his questions 3. Continue to work with child welfare social worker to establish a safe discharge disposition plan 4. Continue work with physical therapy 5. Continue work with occupational therapy 6. Continue with other supportive efforts Time Spent With Patient Total time spent: 30 Subjective Time Seen by Provider: 08:00 Date Seen: 06/05/23 Interval history: Hospital day 3. Postoperative day 2, status post right total shoulder arthroplasty. 77-year-old man with advanced multiple sclerosis undergoes elective right total shoulder arthroplasty on 06/02/2023 successfully. Baseline gait is unstable in the 1st place, warranting use of roller walker. Now he is unable to use a roller walker because of the right total shoulder arthroplasty status. In the recent past he had left total shoulder arthroplasty, and even then he warranted transitional care services after his left total shoulder arthroplasty, although this occurred during COVID pandemic when Medicare had allowed patients is to transfer from hospital to assisted without the need to follow usual guidelines. Presently he seems to have assumed that a similar arrangement would be possible, although it is not. Right shoulder pain is still present but is better managed for now. Trigeminal neuralgia well controlled. Post-op urinary retention has remained problematic, was requiring straight cath for bladder decompression 4 times daily yesterday with post void residuals of 700-1000 ml, and now he has an indwelling urethral catheter in place. Does take an alpha-carey, Tamsulosin, regularly. Exam Narrative: Exam Narrative: I examined the patient in his hospital room. He appears comfortable and in no acute distress. Vision and hearing are adequate. Alert and oriented to self, place, time, situation. Articulate, friendly. Chronic dysphonia. Lungs clear to auscultation. Heart tones with regular rhythm. Abdomen with active bowel sounds, soft. Dressing over right shoulder still in place. Moves elbow, wrist, and fingers of the affected right upper extremity. Const: Vital Signs, click to edit/add: Vital Signs - 24 hr 06/04/23 11:52 06/04/23 15:00 06/04/23 19:50 Temperature 99.2 F 99.3 F Pulse Rate [Left P ulse Oximeter] 77 Pulse Rate [Right Radial] 90 87 Respiratory Rate 18 18 18 Blood Pressure [Le ft Arm] 98/79 151/82 H 126/61 Pulse Oximetry 89 90 92 Oxygen Delivery Me thod Room Air Room Air 06/04/23 20:23 06/04/23 23:00 06/05/23 03:01 Temperature 99.4 F 98.6 F 98.0 F Pulse Rate [Left P ulse Oximeter] 74 65 Pulse Rate [Right Radial] Respiratory Rate 12 18 Blood Pressure [Le ft Arm] 105/57 L 143/71 H Pulse Oximetry 91 94 Oxygen Delivery Me thod Room Air Room Air 06/05/23 07:00 06/05/23 07:00 Temperature 99.9 F H Pulse Rate [Left P ulse Oximeter] Pulse Rate [Right Radial] 91 Respiratory Rate 18 Blood Pressure [Le ft Arm] 157/85 H Pulse Oximetry 92 95 Oxygen Delivery Me thod Room Air Room Air Documenting provider has reviewed patient's vital signs: yes Labs Labs: Laboratory Results - last 24 hr 06/05/23 07:25 WBC 7.45 RBC 3.73 L Hgb 11.5 L Hct 33.8 L MCV 91 MCH 31 MCHC 34 Plt Count 158 Sodium 135 Potassium 4.4 BUN 22 Creatinine 1.0 Estimated Creat Clear 64.89 Estimated GFR 78
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
--- NOTE | 2023-06-05 12:52 | PC.SOCIAL ---
Addendum entered by ANA PAULA Banuelos 06/05/23 13:02: Pt will be transported by Non-emergency ambulance at 1:15 pm. Provided update to Laura in admissions at the [facility]. Phone call to Pt's daughter (Rossy Shin) to provide update on discharge plans and information for [facility]. Original Note: Discharge planning- Received a phone call from Laura at [facility]. [facility] has accepted pt for admission. Pt will need $5,000.00 check upon admission. Updated MD and charge nurse. Charge nurse will work on scheduling non-emergency transport. Met with pt and provided update. Pt updated pt's daughter and she will bring a check over to [facility] after work today. Phone call to [facility] to provide update on payment and that pt accepted. Completed preadmission screening. Confirmation #[id number]. Phone call to pt's daughter to provide update and address of facility. Social work will follow up as needed.
--- NOTE | 2023-06-05 13:42 | PC.NURSE ---
Discharge Note: Patient was transported per EMS to the [facility], [place] for continued rehab d/t shoulder surgery. Report given to Adelaide(Nurse at [facility]) all questions answered.
== END 2023-06-05 13:40 | DRG 483 ==
LOC: OR 06-06 11:15 → MEDSURG 06-06 11:15
PROVIDERS: Admitting Provider Orthopaedic Surgery; PCP Family Medicine; Visit Provider Orthopaedic Surgery
PROC: 0RRJ0JZ Replacement of Right Shoulder Joint with Synthetic Substitute, Open Approach (ICD-10-PCS; CPT 23472; principal; 2023-06-03 09:00)
DX: M75.121 Complete rotator cuff tear or rupture of right shoulder, not specified as traumatic (principal); G35 Multiple sclerosis; G50.0 Trigeminal neuralgia; N31.9 Neuromuscular dysfunction of bladder, unspecified; I10 Essential (primary) hypertension; I48.91 Unspecified atrial fibrillation; Z79.01 Long term (current) use of anticoagulants; Z86.73 Personal history of transient ischemic attack (TIA), and cerebral infarction without residual deficits; F32.A Depression, unspecified; R33.9 Retention of urine, unspecified; Z96.612 Presence of left artificial shoulder joint; G89.18 Other acute postprocedural pain
CPT/HCPCS: 01638; 36415; 51701; 51702; 51798; 64415; 73030; 76942; 82565; 84132; 84295; 84520; 85027; 87081; 97110; 97116; 97162; 97166; 97530; 97535; 99100; A9270; C1713; C1776; C9290; J0330; J0665; J0690; J1170; J2250; J2405; J2704; J3010; J7120; L3670

== ENCOUNTER 2023-06-05 13:15 | Outpatient (CLI) | payer MEDICARE, BC, SELFPAY | END 2023-06-05 13:16 | disposition home or self-care (01) | LOC: AMB 06-07 16:51 | PROVIDERS: PCP Family Medicine; Visit Provider Internal Medicine | DX: Z96.611 Presence of right artificial shoulder joint (principal) | CPT/HCPCS: A0425; A0428 ==

== ENCOUNTER 2024-09-17 10:24 | Outpatient (CLI) | payer MEDICARE, BC, SELFPAY | END 2024-09-17 10:25 | disposition home or self-care (01) | PROVIDERS: PCP Family Medicine; Visit Provider Physician Assistant | DX: M25.511 Pain in right shoulder (principal) | CPT/HCPCS: 85025; 86140 ==